=== PATIENT | female | born 1935 | race Caucasian/White ===

== ENCOUNTER → 2016-05-18 | Outpatient (CLI) | payer MEDICARE ==
[~2016-05-18] MED LIST: CALC600T34 PO; CPMMACHINE; DILA2TAB2 PO; DIPH1TAB36 PO; ENOX40P SQ; FIORINAL2 PO; FISH1000 PO; GLUC500C56 PO; HYDR25TA5 PO; IMIT25TA PO; LOSA25TA PO; META0.52 PO; MISC-163; NAPR220T95 PO; OMEP20CA5 PO; OMEP20TA PO; PYRI100T4 PO; REDPOW2 PO; REST15CA PO; TRAM50TA PO; TYLE650T9 PO; WALKER WHEELS/F1 MIS
[2016-05-18 14:17] LABS: MRSA PCR NEGATIVE (NEGATIVE); STAPH AUREUS PCR NEGATIVE (NEGATIVE)
== END ==
LOC: CPRE 11:30
PROVIDERS: ATTEND Orthopaedic Surgery Sports Medicine
DX: Z01.812 Encounter for preprocedural laboratory examination (principal); Z01.810 Encounter for preprocedural cardiovascular examination; Z01.811 Encounter for preprocedural respiratory examination; Z01.818 Encounter for other preprocedural examination; Z96.60 Presence of unspecified orthopedic joint implant; Z79.01 Long term (current) use of anticoagulants; Z13.9 Encounter for screening, unspecified; M79.609 Pain in unspecified limb
CPT/HCPCS: 87640; 87641

== ENCOUNTER 2016-05-21 14:45 | Inpatient (IN) | payer MEDICARE ==
--- NOTE | 2016-05-17 18:06 | MH ---
cc: FREDERICK KEITH DATE OF ADMISSION: 05/28/2016 PREOPERATIVE DIAGNOSIS Osteoarthritis, left knee. PLANNED PROCEDURE Left total knee arthroplasty. CHIEF COMPLAINT AND HISTORY OF PRESENT ILLNESS This 81-year-old female has a greater than three-year history of left knee pain. Initially it was intermittent but has been progressive. The patient complains of a constant stabbing pain on the medial aspect of the knee. She also relates occasional popping and swelling. She has undergone previous treatment including medication, activity modification, corticosteroid and hyaluronic acid injection without relief. She only takes tramadol for pain. X-rays revealed advanced osteoarthritis involving primarily the medial compartment and patellofemoral joints. There is [id number] apposition, osteophyte formation and mild deformity. Given the alternatives of the treatment, she wishes to pursue total knee arthroplasty. PAST MEDICAL HISTORY Significant for - 1. Hypertension. 2. Hyperlipidemia. 3. GERD. 4. She does have a hiatal hernia. CURRENT MEDICATIONS 1. Butalbital 50 mg. 2. Fluorometholone 0.1% eye drops. 3. Hydrochlorothiazide 25 mg. 4. Losartan 25 mg. 5. Meloxicam 7.5 mg. 6. Ondansetron HCl 8 mg. 7. Sumatriptan 50 mg. 8. Tramadol 50 mg. ALLERGIES OXYCODONE - WHICH CAUSES VOMITING. PAST SURGERIES Oophorectomy and hysterectomy FAMILY HISTORY Her family history is significant for dementia. SOCIAL HISTORY The patient denies tobacco use and uses alcohol occasionally. She is right-hand dominant. She is . She currently is not employed. REVIEW OF SYSTEMS Noncontributory. PHYSICAL EXAMINATION VITAL SIGNS: Height 5'5", weight 160, BMI 25.8. Blood pressure 130/82. GENERAL: An otherwise healthy-appearing female in no obvious distress. HEENT: Normocephalic, atraumatic. Pupils equal, round and reactive to light. Extraocular muscles are intact. The oropharynx is clear. NECK: The neck is supple. LUNGS: The lungs are clear to auscultation. HEART: The heart has a regular rate and rhythm. ABDOMEN: The abdomen is soft, nondistended, bowel sounds are present. GENITOURINARY/RECTAL: Examinations are deferred. EXTREMITIES: Extremities reveal no cyanosis, clubbing or edema. The left knee has an effusion. There is a mild genu varus. She has palpable tenderness of the medial and patellofemoral compartments. She has mild instability to varus and valgus stress. She has a minimally restricted range of motion. She has crepitus in the patellofemoral articulation. NEUROLOGIC: No focal deficit. ASSESSMENT Osteoarthritis, left knee. PLAN Given the alternatives of the treatment, the patient does wish to pursue total knee arthroplasty based on the longstanding nature of her symptomatology, its progression, its limitation of her daily activity and its unresponsiveness to treatment. The nature of the planned surgical procedure, the risks, the expected benefits, as well as the postoperative expectations have been discussed with her in detail. In addition, the alternatives of the treatment and risks of same were discussed. The possibility of the procedure not improving her symptomatology was discussed and she acknowledges full understanding and consents to it. MD SHERYL Roblero/MONICA /5:23 PM /5:43 PM
[~2016-05-21] VITALS: Ht 170.2 cm; Wt 81.5 kg
[~2016-05-21 14:45] MED LIST changes: -CALC600T34 PO; -CPMMACHINE; -DILA2TAB2 PO; -DIPH1TAB36 PO; -ENOX40P SQ; -FISH1000 PO; -GLUC500C56 PO; -HYDR25TA5 PO; -MISC-163; -NAPR220T95 PO; -OMEP20CA5 PO; -PYRI100T4 PO; -REDPOW2 PO; -REST15CA PO; -TRAM50TA PO; -WALKER WHEELS/F1 MIS
[2016-05-28 10:25] VITALS: BP 138/72; PULSE 74; RESP 20; TEMP 98.1; O2SAT 97
[2016-05-28] MEDS ORDERED: TRAM50TA PO (10:57)
[2016-05-28] MEDS ORDERED: NAPR220T95 PO (10:57)
[2016-05-28] MEDS ORDERED: HYDR25TA5 PO (10:57)
[2016-05-28] MEDS ORDERED: INSULIN HUMAN REGULAR 1,000 UNITS/10 ML VIAL SQ PRN (11:00)
[2016-05-28] MEDS: CHLORHEXIDINE GLUCONATE 4% SOLN 120 ML BTL TOP SCH (11:00)
[2016-05-28] MEDS ORDERED: ceFAZolin 2 GM PREMIX 50 ML IV SCH (11:00)
[2016-05-28] MEDS ORDERED: METOPROLOL TARTRATE 25 MG TAB PO PRN (11:00)
[2016-05-28] MEDS ORDERED: VANCOMYCIN 1000 MG/NS 250 ML (for <70 kg) IV SCH ×2 (11:00)
[2016-05-28] MEDS ORDERED: PROPOFOL 200 MG/20 ML AMP IV ONE (11:29)
[2016-05-28] MEDS ORDERED: LACTATED RINGER'S 1000 ML INJ 1,000 ML IV ONE (11:29)
[2016-05-28] MEDS ORDERED: ceFAZolin INJ 1,000 MG VIAL ONE (11:43)
[2016-05-28] MEDS ORDERED: MIDAZOLAM HCL 5 MG/5 ML VIAL ONE (11:48)
[2016-05-28] MEDS ORDERED: FAMOTIDINE 20 MG/2 ML VIAL ONE (11:49)
[2016-05-28] MEDS ORDERED: LACTATED RINGER'S 1000 ML IV SCH (12:00)
[2016-05-28] MEDS ORDERED: SODIUM CHLORID 0.9% 500 ML IV SCH (12:00)
[2016-05-28] MEDS ORDERED: ACETAMINOPHEN 1000 MG/100 ML VIAL IV ONE (12:25)
[2016-05-28] MEDS ORDERED: BUPIVACAINE HCL PF 0.5% 30 ML VIAL NB ONE (12:55)
--- NOTE | 2016-05-28 14:21 | PD.OP ---
cc: Neville Brown MD Operative Report Date of Surgery: May 28, 2016 Preoperative Diagnosis: (1) Osteoarthritis of left knee Postoperative Diagnosis: (1) Osteoarthritis of left knee Procedure: Left total knee arthroplasty Implants used: Biomet Vanguard total knee system size 67.5 press-fit femoral component, size 71 cemented tibial component with a 12 tibial bearing and a 34 cemented polyethylene patellar button Anesthesia: Spinal Surgeon: Neville Brown Port Warden(s): Miriam Conley PA-C ([place]) The surgical procedure was assisted by my physician's assistant professor of chemistry. Her presence was necessary throughout the case for manipulation and positioning of the surgical extremity. My PA was assisting me throughout the duration of this procedure. The skill set of the physician assistant professor of chemistry was medically necessary to complete this procedure. During the surgical case the surgical device sales representative was working at the back table and the physician assistant professor of chemistry was directly assisting me. Operation and Findings: Indications: This 81-year-old female has a greater than 3 year history of left knee pain. It has been progressive. She has a stabbing constant pain over the medial aspect. She does relate occasional popping and swelling. She's been unresponsive to nonoperative measures including medication, activity modification, corticosteroid and hyaluronic acid injection without relief. X- rays are consistent with advanced osteoarthritis with [id number]-[id number]-[id number] apposition, osteophyte formation and mild deformity. Given the alternatives of the treatment she presents for total knee arthroplasty. Procedure and findings: The patient was taken to the operative suite and after undergoing an adequate level of general anesthesia was kept supine on the operating table. Preoperative antibiotics consisted of Ancef 2 g IV and vancomycin 1 g IV. The left lower extremity was then prepped and draped in usual sterile fashion with alcohol and Hibiclens. A standard anterior approach the knee was made with incision centered over the medial one third of the patella. This was carried down through skin and subcutaneous tense tissue with a knife. The quadricep tendon was identified proximally and the patellar tendon distally. A medial parapatellar arthrotomy was made. A small joint effusion was evacuated. Upon entering the knee joint is noted to be marked degenerative changes which were tricompartmental in nature. The remnant of the ACL was excised. The menisci were excised. Osteophytes were removed. Attention was first focused on the distal femur where an intramedullary guide was used to make a 5 valgus cut. A sizing jig was then applied and a 67.5 selected. With the cutting block in place the anterior, posterior and chamfer cuts were made. Attention was then focused on the proximal tibia. An extramedullary guide was used. Approximately 2 mm of bone was resected from the more involved medial aspect. The varus/valgus alignment was also checked with an extramedullary guide. The tibia was then sized to a 71. A freehand technique was utilized on the patella. This was sized to a 34. Drill holes were made and trial components placed. The 12 mm tibial bearing gave the best range of motion and stability. There was good patellar tracking. These components were therefore selected. The femoral drill holes were made. The tibial cement punches were made. The wound was thoroughly irrigated with pulse lavage. Bone cement was prepared on the back table. After thorough drying it was applied to the proximal tibia. The tibial component was then impacted in the place. All excess bone cement was removed. The tibial insert was then placed and the locking mechanism seated. The femoral component was then impacted in the place. The knee was then placed in full extension for further compression. After thorough drying bone cement was applied to the undersurface of the patella. The patellar button was seated and held with a compression clamp. All excess bone cement was removed. Once the cement had matured good range of motion, patellar tracking and stability was again noted. The wound was again thoroughly irrigated with pulse lavage. AutoVac drains were left in place. The incision was closed in layers utilizing #1 Vicryl suture on the extensor mechanism, 0 Vicryl suture on the deep tissue, 2-0 Vicryl suture on the subcutaneous tissue and tiffany on the skin. Sterile dressings were applied the patient was awakened transferred to the hospital bed and taken to the recovery room in stable condition. Estimated blood loss: 50 cc Complications: None Tourniquet time: 74 minutes Neville Brown MD May 28, 2016 14:21
[2016-05-28] MEDS ORDERED: DO NOT ADM ANY ANTICOAGULANT DRUGS XX PRN (14:28)
[2016-05-28] MEDS ORDERED: ALUMINUM/MAGNESIUM/SIMETH 30 ML CUP PO PRN (14:30)
[2016-05-28] MEDS ORDERED: POVIDONE IODINE 10% SOLN 118 ML BOTTLE TOPICAL PRN (14:30)
[2016-05-28] MEDS ORDERED: TEMAZEPAM 15 MG CAP PO PRN (14:30)
[2016-05-28] MEDS ORDERED: Post-op Orders (for Pharmacy) MISC XX ONE (14:30)
[2016-05-28] MEDS ORDERED: BISACODYL 10 MG SUPP PR PRN (14:30)
[2016-05-28] MEDS ORDERED: ONDANSETRON HCL 4 MG/2 ML VIAL IVP PRN (14:30)
[2016-05-28] MEDS ORDERED: MORPHINE SULFATE 4 MG/ML INJ IV PUSH PRN (14:30)
[2016-05-28] MEDS ORDERED: ACETAMINOPHEN 325 MG TAB PO PRN (14:30)
[2016-05-28] MEDS ORDERED: oxyCODONE/ACETAMINOPHEN 5 MG/325 MG TAB PO PRN (14:30)
[2016-05-28] MEDS ORDERED: SODIUM CHLORIDE 0.9% FLUSH 5 ML FLUSH IVF PRN (14:30)
[2016-05-28] MEDS ORDERED: *MEPERIDINE 25 MG INJ VIAL PERIprocedural Use ONLY ONE (14:53)
[2016-05-28] MEDS: LACTATED RINGER'S 1000 ML INJ 1,000 ML IV SCH (15:20)
--- NOTE | 2016-05-28 15:27 | RADRPT ---
EXAM DATE/TIME: 05/28/2016 14:46 [place] COMPARISON: No previous studies available for comparison. INDICATIONS : Post operative left knee. MEDICAL HISTORY : None. SURGICAL HISTORY : None. ENCOUNTER: Initial ACUITY: 1 day PAIN SCORE: Non-responsive. LOCATION: Left Knee FINDINGS: AP and lateral views of the knee following arthroplasty reveals a prosthesis in anatomic alignment. F racture is not appreciated. CONCLUSION: Status post total knee arthroplasty. Piter Collado MD FACR Board Certified Radiologist. This report was verified electronically.
[2016-05-28] MEDS ORDERED: *morphine SULFATE 8 MG/ML PERIprocedure ONLY ONE ×3 (15:59→17:29)
--- NOTE | 2016-05-28 16:54 | PD.CONS ---
HPI Service [facility] Hospitalists Consult Requested By Dr. Neville Brown Reason for Consult Medical Management Primary Care Physician Bam Kidd MD Diagnoses: History of Present Illness Ms. Tomas is a pleasant 81 y/o female with HTN, hyperlipidemia, osteoarthritis , GERD and migraine headaches. [place] [facility] [place] for elective left total knee arthroplasty with Dr. Brown. [facility] Hospitalist team was consulted to help with managing the pts chronic medical issues post-operatively. Pt is seen in PACU and is without any specific complaints. Her BP is mildly elevated. Home meds to be resumed. Pt denies any nausea/vomiting, chills, chest pain, SOB or palpitations. Review of Systems Constitutional: DENIES: Fever, Chills Respiratory: DENIES: Cough, Shortness of breath Cardiovascular: DENIES: Chest pain, Palpitations Gastrointestinal: DENIES: Nausea, Vomiting Genitourinary: DENIES: Hematuria Musculoskeletal: COMPLAINS OF: Joint pain Integumentary: DENIES: Rash Neurologic: DENIES: Headache Other left knee pain Past Family Social History Past Medical History HTN Hyperlipidemia Hypertensive CKD DDD Venous insufficiency Hx of vertigo GERD Migraine headaches Osteoarthritis Osteopenia Past Surgical History Bladder surgery Vaginal hysterectomy Bilateral oophorectomy Rectocele repair Tonsillectomy with adenoidectomy Cataract surgery Reported Medications -Hydrochlorothiazide 25 Mg PO DAILY -Tramadol 50 Mg PO Q6H PRN -Imitrex (Sumatriptan Succinate) 25 Mg Tab Unknown Dose PO ONCE PRN If a satisfactory response has not been obtained at 2 hours, a second dose may be administered -Losartan 25 Mg PO DAILY -Omeprazole 20 Mg PO DAILY -Fiorinal (Butalbital/Aspirin/Caffeine) 50-325-40 Mg Cap 1 Cap PO Q4H PRN Do not exceed 6 capsules/day. Aleve (Naproxen Sodium) 220 Mg Tab 220 Mg PO BID PRN Metamucil 520 Mg PO DAILY Tylenol 8 Hour Arthritis (Acetaminophen) 650 Mg Tab 650 Mg PO HS Allergies: Coded Allergies: No Known Allergies (Verified , 05/28/16) Family History Mother with hx of breast cancer and dementia Father with hx of CAD/ND, at age 50 Brother wth hx of COPD Sister with HTN Social History Denies any tobacco use Occasionally has a glass of wine Pt is , lives in a private residence Physical Exam Vital Signs nad oriented heart reg lung cta abd s/nt ext right knee dressed. cpm [place] Vital Signs Date Time Temp Pulse Resp B/P Pulse Ox O2 Delivery O2 Flow Rate FiO2 05/28/16 16:30 60 16 152/72 99 Nasal Cannula 2 05/28/16 16:00 71 16 158/75 94 Room Air 05/28/16 15:30 60 16 141/79 99 Nasal Cannula 3 05/28/16 15:15 61 16 144/77 98 Nasal Cannula 3 05/28/16 15:00 58 15 141/69 98 Nasal Cannula 3 05/28/16 14:45 60 15 156/78 98 Nasal Cannula 3 05/28/16 14:30 97.7 82 15 157/99 98 Nasal Cannula 3 05/28/16 10:25 98.1 74 20 138/72 97 Laboratory Laboratory Tests Test 05/28/16 10:50 Blood Type A POSITIVE Antibody Screen NEGATIVE Blood Bank Comment Imaging Last Impressions Knee X-Ray 05/28/16 0000 Signed Impressions: Service Date/Time: Saturday, May 28, 2016 14:46 - CONCLUSION: Status post total knee arthroplasty. Piter Collado MD Assessment and Plan Problem List: (1) Osteoarthritis of left knee Status: Acute Plan: - Pt s/p Left total knee arthroplasty on 05/28/[address] Brown - Post- op pain control per Ortho - IS - PT daily - dvt prophylaxis -plan for snf (2) Hypertension Status: Chronic Plan: - Resume home meds, Losartan, HCTZ - Monitor (3) Hyperlipemia Status: Chronic (4) GERD (gastroesophageal reflux disease) Status: Chronic Plan: - PPI (5) History of migraine headaches Status: Chronic Tiesha Chao May 28, 2016 16:54 Neville Lopez MD May 28, 2016 21:16 Tiesha Chao May 28, 2016 16:54
[2016-05-28] MEDS: ceFAZolin 2 GM PREMIX 50 ML IV SCH ×2 (17:00→21:50)
[2016-05-28] MEDS ORDERED: cloNIDine HCL 0.1 MG TAB PO PRN (17:30)
[2016-05-28] MEDS: oxyCODONE/ACETAMINOPHEN 5 MG/325 MG TAB PO PRN (18:56)
[2016-05-28 20:10] VITALS: BP 151/72; PULSE 75; RESP 17; TEMP 95.7; O2SAT 100
[2016-05-28] MEDS: SODIUM CHLORIDE 0.9% FLUSH 5 ML FLUSH IVF SCH (20:23)
[2016-05-29 00:05] VITALS: BP 127/67; PULSE 86; RESP 17; TEMP 95.7; O2SAT 95
[2016-05-29] MEDS: oxyCODONE/ACETAMINOPHEN 5 MG/325 MG TAB PO PRN ×3 (00:09→13:30)
[2016-05-29 04:00] VITALS: BP 130/58; PULSE 88; RESP 18; TEMP 99.7; O2SAT 97
[2016-05-29] MEDS: ceFAZolin 2 GM PREMIX 50 ML IV SCH (04:22)
[2016-05-29] MEDS: LACTATED RINGER'S 1000 ML INJ 1,000 ML IV SCH ×3 (04:22→21:19)
[2016-05-29 06:09] LABS: HEMATOCRIT 29.7 % (35.0-46.0); REVIEW FLAG FINAL
[2016-05-29 06:35] LABS: BICARBONATE 29.9 MEQ/L (21.0-32.0); POTASSIUM 3.5 MEQ/L (3.5-5.1)
--- NOTE | 2016-05-29 07:02 | PD.ORT.PN ---
Subjective Post Op Day #: 1 Subjective Remarks Pt laying comfortably in bed, awake and answering questions appropriately. Admits to well controlled left knee pain. No other complaints noted. Objective Vitals Vital Signs Date Time Temp Pulse Resp B/P Pulse Ox O2 Delivery O2 Flow Rate FiO2 05/29/16 04:00 99.7 88 18 130/58 97 05/29/16 00:05 95.7 86 17 127/67 95 05/28/16 20:10 95.7 75 17 151/72 100 05/28/16 17:55 98.0 67 16 158/78 99 Nasal Cannula 2 05/28/16 17:00 69 15 142/65 99 Nasal Cannula 2 05/28/16 16:30 60 16 152/72 99 Nasal Cannula 2 05/28/16 16:00 71 16 158/75 94 Room Air 05/28/16 15:30 60 16 141/79 99 Nasal Cannula 3 05/28/16 15:15 61 16 144/77 98 Nasal Cannula 3 05/28/16 15:00 58 15 141/69 98 Nasal Cannula 3 05/28/16 14:45 60 15 156/78 98 Nasal Cannula 3 05/28/16 14:30 97.7 82 15 157/99 98 Nasal Cannula 3 05/28/16 10:25 98.1 74 20 138/72 97 I/O 05/28/16 05/28/16 05/28/16 05/29/16 05/29/16 05/29/16 07:00 15:00 23:00 07:00 15:00 23:00 Intake Total 1100 ml 788 ml 657 ml Output Total 325 ml 735 ml 90 ml Balance 775 ml 53 ml 567 ml Intake Oral 240 ml IV Total 548 ml 657 ml Other 1100 ml Output Urine Total 300 ml 600 ml Drainage Total 135 ml 90 ml Estimated Blood Loss 25 ml # Bowel Movements 0 Result Diagram: 05/29/16 0514 05/29/16 0514 Imaging Last 48 hours Impressions Knee X-Ray 05/28/16 0000 Signed Impressions: Service Date/Time: Saturday, May 28, 2016 14:46 - CONCLUSION: Status post total knee arthroplasty. Piter Collado MD Procedures Left Total Knee Arthroplasty (05/28/16) Objective Remarks LLE: Dressing is dry and intact. Warm LE. Good cap refill. 2+ pedal pulses No calf pain. Negative Ronen's sign. Neurovascular intact. Free movement of ankle and toes. Assessment & Plan Ortho Post Op Day #: 1 Problem List: (1) History of total knee replacement (2) Osteoarthritis of left knee (3) Hyperlipemia (4) GERD (gastroesophageal reflux disease) (5) Hypertension Assessment and Plan Ortho status stable POD #1. Progress therapy per protocol. Start CPM machine today. Continue Lovenox for DVT prophylaxis, pain management and bowel regimen. Discharge planning. Miriam Conley May 29, 2016 07:02
[2016-05-29 08:00] VITALS: BP 150/95; PULSE 87; RESP 16; TEMP 98; O2SAT 96
[2016-05-29] MEDS ORDERED: PATIENT OWN MEDICATION PO SCH (09:00)
[2016-05-29] MEDS: LOSARTAN 25 MG TAB PO SCH (09:26)
[2016-05-29] MEDS: PANTOPRAZOLE SOD 20 MG DELAYED RELEASE TAB PO SCH (09:26)
[2016-05-29] MEDS: HYDROCHLOROTHIAZIDE 25 MG TAB PO SCH (09:26)
[2016-05-29] MEDS: SODIUM CHLORIDE 0.9% FLUSH 5 ML FLUSH IVF SCH ×2 (09:27→21:18)
[2016-05-29] MEDS: CHLORHEXIDINE GLUCONATE 4% SOLN 120 ML BTL TOP SCH (11:00)
[2016-05-29 12:00] VITALS: BP 125/58; PULSE 78; RESP 16; TEMP 98; O2SAT 93
[2016-05-29] MEDS: ENOXAPARIN SODIUM 40 MG/0.4 ML SYRINGE SQ SCH (13:32)
[2016-05-29 16:00] VITALS: BP 154/71; PULSE 73; RESP 16; TEMP 97.5; O2SAT 93
--- NOTE | 2016-05-29 16:52 | EKG ---
Date Performed: 05/28/2016 Time Performed: 11:42:33 PTAGE: 81 years EKG: Sinus rhythm BORDERLINE LEFT AXIS DEVIATION INCOMPLETE RIGHT BUNDLE BRANCH BLOCK Compared to prior tracing no sig nificant change BORDERLINE ECG PREVIOUS TRACING : 10/07/2007 10.04 DOCTOR: Tierra Ruff Interpretating Date/Time 05/29/2016 16:50:48
[2016-05-29 20:00] VITALS: BP 142/64; PULSE 79; RESP 20; TEMP 98.2; O2SAT 94
[2016-05-29] MEDS: DOCUSATE SODIUM 100 MG CAP PO SCH (21:18)
[2016-05-29] MEDS: MAGNESIUM HYDROXIDE SUSP 30 ML CUP PO PRN (21:18)
[2016-05-29] MEDS: ONDANSETRON HCL 4 MG/2 ML VIAL IV PRN (21:18)
[2016-05-29] MEDS: ASPIRIN 325 MG/CAFFEINE 40 MG/BUTALBITAL 50 MG CAP PO PRN (21:18)
[2016-05-29] MEDS: MULTIVITAMINS/MINERALS THERAPEUTIC TAB PO SCH (21:18)
[2016-05-30] VITALS: BP 142/62; PULSE 80; RESP 20; TEMP 99.6; O2SAT 94
[2016-05-30] MEDS: ASPIRIN 325 MG/CAFFEINE 40 MG/BUTALBITAL 50 MG CAP PO PRN (05:36)
--- NOTE | 2016-05-30 07:35 | PD.ORT.PN ---
Subjective Post Op Day #: 2 Subjective Remarks Pt laying comfortably in bed, awake and answering questions appropriately. Admits to well controlled left knee pain. She was not able to walk with therapy yesterday due to pain - she will attempt to today. No other complaints noted. Objective Vitals Vital Signs Date Time Temp Pulse Resp B/P Pulse Ox O2 Delivery O2 Flow Rate FiO2 05/30/16 00:00 99.6 80 20 142/62 94 05/29/16 20:00 98.2 79 20 142/64 94 05/29/16 16:00 97.5 73 16 154/71 93 05/29/16 12:00 98.0 78 16 125/58 93 05/29/16 08:00 98.0 87 16 150/95 96 I/O 05/29/16 05/29/16 05/29/16 05/30/16 05/30/16 05/30/16 07:00 15:00 23:00 07:00 15:00 23:00 Intake Total 897 ml 480 ml 720 ml Output Total 690 ml 90 ml Balance 207 ml 480 ml -90 ml 720 ml Intake Oral 240 ml 480 ml 720 ml IV Total 657 ml Output Urine Total 600 ml Drainage Total 90 ml 90 ml # Voids 2 7 # Bowel Movements 0 0 0 Result Diagram: 05/29/16 0514 05/29/16 0514 Imaging Last 48 hours Impressions Knee X-Ray 05/28/16 0000 Signed Impressions: Service Date/Time: Saturday, May 28, 2016 14:46 - CONCLUSION: Status post total knee arthroplasty. Piter Colaldo MD Procedures Left Total Knee Arthroplasty (05/28/16) Objective Remarks LLE: Dressing is dry and intact. Warm LE. Good cap refill. 2+ pedal pulses No calf pain. Negative Ronen's sign. Neurovascular intact. Free movement of ankle and toes. Assessment & Plan Ortho Post Op Day #: 2 Problem List: (1) History of total knee replacement (2) Osteoarthritis of left knee (3) Hyperlipemia (4) GERD (gastroesophageal reflux disease) (5) Hypertension Assessment and Plan Ortho status stable POD #2. Progress therapy per protocol. Continue CPM machine use. Continue Lovenox for DVT prophylaxis, pain management and bowel regimen. Discharge planning - most likely to rehab center. Miriam Conley May 30, 2016 07:35
[2016-05-30 07:46] VITALS: BP 134/63; PULSE 85; RESP 16; TEMP 98.3; O2SAT 92
[2016-05-30] MEDS ORDERED: HYDROmorphone HCL 4 MG TAB PO PRN (08:30)
[2016-05-30] MEDS: MULTIVITAMINS/MINERALS THERAPEUTIC TAB PO SCH ×2 (09:26→20:46)
[2016-05-30] MEDS: MAGNESIUM HYDROXIDE SUSP 30 ML CUP PO PRN (09:26)
[2016-05-30] MEDS: HYDROmorphone HCL 2 MG TAB PO PRN ×2 (09:27→15:23)
[2016-05-30] MEDS: LOSARTAN 25 MG TAB PO SCH (09:27)
[2016-05-30] MEDS: SODIUM CHLORIDE 0.9% FLUSH 5 ML FLUSH IVF SCH ×2 (09:27→20:47)
[2016-05-30] MEDS: PANTOPRAZOLE SOD 20 MG DELAYED RELEASE TAB PO SCH (09:27)
[2016-05-30] MEDS: HYDROCHLOROTHIAZIDE 25 MG TAB PO SCH (09:27)
[2016-05-30] MEDS: DOCUSATE SODIUM 100 MG CAP PO SCH ×2 (09:27→20:46)
[2016-05-30] MEDS: CHLORHEXIDINE GLUCONATE 4% SOLN 120 ML BTL TOP SCH (11:00)
[2016-05-30 12:00] VITALS: BP 161/74; PULSE 88; RESP 17; TEMP 97.2; O2SAT 95
[2016-05-30] MEDS: ENOXAPARIN SODIUM 40 MG/0.4 ML SYRINGE SQ SCH (13:08)
[2016-05-30] MEDS: ONDANSETRON HCL 4 MG/2 ML VIAL IV PRN (15:23)
[2016-05-30] MEDS: LACTATED RINGER'S 1000 ML INJ 1,000 ML IV SCH ×2 (16:21→20:47)
[2016-05-30 16:47] VITALS: BP 139/67; PULSE 79; RESP 16; TEMP 98.2; O2SAT 93
[2016-05-30 19:30] VITALS: BP 118/56; PULSE 90; RESP 16; TEMP 98.6; O2SAT 94
[2016-05-30 23:40] VITALS: BP 112/56; PULSE 84; RESP 17; TEMP 99.1; O2SAT 92
[2016-05-31 01:58] VITALS: BP 143/68; PULSE 84; TEMP 98.9
[2016-05-31] MEDS: HYDROmorphone HCL 2 MG TAB PO PRN ×2 (01:59→09:53)
[2016-05-31 04:00] VITALS: BP 112/56; PULSE 81; RESP 16; TEMP 99; O2SAT 91
--- NOTE | 2016-05-31 07:31 | PD.ORT.PN ---
Subjective Post Op Day #: 3 Pain Scale: 4 Subjective Remarks The patient is out of bed ambulating to the bathroom upon entering the room. Her pain is improving. Her nausea is improved with the use of hydromorphone instead of oxycodone. She feels she is ready to go to rehabilitation today. She has no other specific complaint. Objective Vitals Vital Signs Date Time Temp Pulse Resp B/P Pulse Ox O2 Delivery O2 Flow Rate FiO2 05/31/16 04:00 99.0 81 16 112/56 91 05/31/16 02:55 18 05/31/16 01:58 98.9 84 143/68 05/30/16 23:40 99.1 84 17 112/56 92 05/30/16 19:30 98.6 90 16 118/56 94 05/30/16 16:47 98.2 79 16 139/67 93 05/30/16 12:00 97.2 88 17 161/74 95 05/30/16 07:46 98.3 85 16 134/63 92 I/O 05/30/16 05/30/16 05/30/16 05/31/16 05/31/16 05/31/16 07:00 15:00 23:00 07:00 15:00 23:00 Intake Total 720 ml 840 ml 480 ml 480 ml Output Total 30 ml Balance 690 ml 840 ml 480 ml 480 ml Intake Oral 720 ml 840 ml 480 ml 480 ml Drainage Total 30 ml # Voids 7 2 2 3 # Bowel Movements 0 1 1 Result Diagram: 05/29/16 0514 05/29/16 0514 Imaging Last 48 hours Impressions Knee X-Ray 05/28/16 0000 Signed Impressions: Service Date/Time: Saturday, May 28, 2016 14:46 - CONCLUSION: Status post total knee arthroplasty. Piter Collado MD Procedures Left Total Knee Arthroplasty (05/28/16) Objective Remarks LLE: Dressing is dry and intact. Warm LE. Good cap refill. 2+ pedal pulses No calf pain. Negative Ronen's sign. Neurovascular intact. Free movement of ankle and toes. Assessment & Plan Ortho Post Op Day #: 3 Problem List: (1) History of total knee replacement (2) Osteoarthritis of left knee (3) Hyperlipemia (4) GERD (gastroesophageal reflux disease) (5) Hypertension Assessment and Plan Ortho status stable POD #3 for discharge to rehabilitation. She will follow with the undersigned as scheduled in approximately 3 weeks. Neville Brown MD May 31, 2016 07:31
[2016-05-31] MEDS ORDERED: ENOX40P SQ (07:34)
[2016-05-31] MEDS ORDERED: DILA2TAB2 PO (07:34)
[2016-05-31] MEDS ORDERED: WALKER WHEELS/F1 MIS (07:36)
[2016-05-31] MEDS ORDERED: CPMMACHINE (07:36)
[2016-05-31] MEDS ORDERED: MISC-163 (07:36)
--- NOTE | 2016-05-31 07:41 | HHI.DS ---
Discharge Summary Admission Date May 28, 2016 at 10:06 Discharge Date: May 31, 2016 Admitting Diagnosis Osteoarthritis left knee Diagnosis: (1) History of total knee replacement (2) Osteoarthritis of left knee (3) Hyperlipemia (4) GERD (gastroesophageal reflux disease) (5) Hypertension Procedures Left Total Knee Arthroplasty (05/28/16) Brief History This is a 81 year old female patient with a greater than 3 year history of left knee pain. It has been progressive over the last several months. She has constant pain which is over the medial aspect primarily. There is associated popping and swelling. She is been unresponsive to nonoperative measures including medication, activity modification, corticosteroid and how erotic acid injection. The patient x-rays reveals advanced osteoarthritis which involves primarily the medial compartment. There is hnsa-[id number] apposition, osteophyte formation and mild deformity. Given the alternatives of the treatment she presents for total knee arthroplasty. CBC/BMP: 05/29/16 0514 05/29/16 0514 Significant Findings Laboratory Tests Test 05/29/16 05:14 Hemoglobin 10.1 GM/DL (11.6-15.3) Hematocrit 29.7 % (35.0-46.0) Sodium Level 134 MEQ/L (136-145) Chloride Level 96 MEQ/L (98-107) Estimat Glomerular Filtration 70 ML/MIN (>89) Rate Random Glucose 145 MG/DL (74-106) Calcium Level 8.2 MG/DL (8.5-10.1) Imaging Postoperative to view x-ray of the left knee 05/28/16 reveals good positioning of the total knee components. PE at Discharge LLE: Dressing is dry and intact. Warm LE. Good cap refill. 2+ pedal pulses No calf pain. Negative Ronen's sign. Neurovascular intact. Free movement of ankle and toes. Hospital Course On the day of admission the patient was taken to the operating room where she underwent a left total knee arthroplasty. The patient tolerated the procedure well. For details of the operative procedure please see dictated operative note. The patient was placed on Ancef for infection prophylaxis and Lovenox for DVT prophylaxis. Physical therapy was consulted for gait training and lower extremity exercise per TKR protocol. Case management was consulted for discharge planning. It was felt the patient would benefit from continuation of rehabilitation in a [facility] facility. The patient's postoperative hemoglobin was 10.1. The patient did have nausea with the use of Percocet and responded better to Dilaudid. At the time of discharge she was afebrile. Her incision line was noted be healing well. Her pain was well-controlled with oral medication. The patient will continue Lovenox for DVT prophylaxis and was prescribed Dilaudid for pain. She will follow with the undersigned in approximately 3 weeks. Orders have been given for wound care and staple removal. The patient acknowledges full understanding of the plan of treatment and agrees to it. Pt Condition on Discharge: Good Discharge Disposition: Discharge to SNF Discharge Instructions Diet Instructions: As Tolerated, No Restrictions Activities You Can Perform: Full Weight Bearing Activities to Avoid: Lifting/Bending Neville Brown MD May 31, 2016 07:41
[2016-05-31 08:00] VITALS: BP 135/72; PULSE 79; RESP 18; TEMP 98.6; O2SAT 93
[2016-05-31] MEDS: HYDROCHLOROTHIAZIDE 25 MG TAB PO SCH (08:37)
[2016-05-31] MEDS: MULTIVITAMINS/MINERALS THERAPEUTIC TAB PO SCH (08:37)
[2016-05-31] MEDS: PANTOPRAZOLE SOD 20 MG DELAYED RELEASE TAB PO SCH (08:37)
[2016-05-31] MEDS: DOCUSATE SODIUM 100 MG CAP PO SCH (08:37)
[2016-05-31] MEDS: SODIUM CHLORIDE 0.9% FLUSH 5 ML FLUSH IVF SCH (08:37)
[2016-05-31] MEDS: LOSARTAN 25 MG TAB PO SCH (08:37)
[2016-05-31] MEDS: LACTATED RINGER'S 1000 ML INJ 1,000 ML IV SCH (08:38)
[2016-05-31] MEDS ORDERED: POLYETHYLENE GLYCOL 17 GM PKG PO SCH (09:00)
== END 2016-05-31 11:46 | DRG 470 ==
LOC: HSDI 05-28 10:06 → N06B 05-28 18:23
PROVIDERS: ADMIT Orthopaedic Surgery Sports Medicine; ATTEND Orthopaedic Surgery Sports Medicine
PROC: 0QRF0JZ Replacement of Left Patella with Synthetic Substitute, Open Approach (ICD-10-PCS; 2016-05-28)
PROC: 0SRD0J9 Replacement of Left Knee Joint with Synthetic Substitute, Cemented, Open Approach (ICD-10-PCS; principal; 2016-05-28 12:20)
DX: M17.12 Unilateral primary osteoarthritis, left knee (principal); I12.9 Hypertensive chronic kidney disease with stage 1 through stage 4 chronic kidney disease, or unspecified chronic kidney disease; E78.5 Hyperlipidemia, unspecified; K21.9 Gastro-esophageal reflux disease without esophagitis; N18.9 Chronic kidney disease, unspecified; K44.9 Diaphragmatic hernia without obstruction or gangrene; I87.2 Venous insufficiency (chronic) (peripheral); M85.80 Other specified disorders of bone density and structure, unspecified site; Z88.5 Allergy status to narcotic agent
CPT/HCPCS: 73560; 80048; 85014; 85018; 86850; 86900; 86901; 93005; 94150; C1776; J0131; J0690; J1650; J2175; J2250; J2270; J2405; J3010; J3370; J7050; J7120; L1830